=== PATIENT | female | born 1965 | race Caucasian/White ===

== ENCOUNTER 2022-05-03 00:16 | Emergency (ER) | payer OTHER, SELFPAY ==
--- NOTE | ~2022-05-03 | XR_ITS ---
EXAMINATION: XR CHEST CLINICAL INFORMATION: Cough COMPARISON: None TECHNIQUE: 2 views of the chest were obtained. FINDINGS: Lungs are well-inflated and clear. Trachea is midline in position. No interstitial infiltrate, consolidation or mass. No pleural effusion or pneumothorax. Cardiac silhouette and pulmonary vessels are normal in size. The mediastinum and korin have normal contour. The visualized bones and upper abdomen are unremarkable. XR/XR chest 2V IMPRESSION: No radiographic evidence of pneumonia. No acute cardiopulmonary abnormality.
[2022-05-03 00:39] VITALS: BP 108/68; PULSE 115; RESP 18; TEMP 38.2; O2SAT 94; BMI 32.1
[2022-05-03 05:52] VITALS: BP 109/55; PULSE 93; RESP 18; TEMP 36.9; O2SAT 97
--- NOTE | 2022-05-03 06:50 | ED.GENADULT ---
HPI - General Adult General Chief complaint: Upper Respiratory Symptoms Stated complaint: flu like symptons Time Seen by Provider: 05/03/22 06:45 Source: patient Mode of arrival: ambulatory Limitations: no limitations History of Present Illness HPI narrative: This is a very pleasant 56 years old female presented to the emergency department complaining of cough, chills, fever. 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 She has history of asthma but otherwise no other medical problems she has no smoker Onset (ago): hour(s) (6) Radiation: non-radiation Severity: mild Pain Consistency: constant Relieving factors: none Exacerbating factors: none Associated symptoms: denies other symptoms Related Data Allergies Allergy/AdvReac Type Severity Reaction Status Date / Time No Known Allergies Allergy Unverified 06/27/20 17:22 [No Known Allergies*] Review of Systems Review of Systems: Yes all other systems are reviewed and are negative Constitutional: Constitutional: Reports as per HPI Cardiovascular: Cardiovascular: Denies chest pain and Denies dyspnea Respiratory: Respiratory: Denies dyspnea Gastrointestinal: Gastrointestinal: Denies abdominal pain [facility] Past Medical History [facility] Narrative: Asthma Social History Social History Patient Tobacco Use Status: Never used Tobacco Use of substances other than those prescribed or required for medical reasons: No Advance Directives: No Physical Exam ED Vital Signs: Vital Signs - 24 hr 05/03/22 00:39 05/03/22 05:52 05/03/22 08:08 Temperature 100.7 F H 98.5 F 98.8 F Pulse Rate 115 H 93 97 Respiratory Rate 18 18 18 Blood Pressure 108/68 109/55 L 109/57 L Pulse Oximetry 94 97 95 Oxygen Delivery Method Room Air Room Air Room Air BMI result Body Mass Index 32.1 Const Other: She looks well she is not toxic-appearing General: cooperative, comfortable, no acute distress, well developed, alert, awake and Physically active Nutritional Appearance: average body habitus and well nourished Limitations: no limitations HENMT Head: Yes normal to inspection Face and sinus: Yes normal facial exam Mouth: Normal oral and palatal mucosa present Throat: Yes posterior oropharynx normal Neck Neck: Yes normal visual inspection and Yes full ROM Chest Chest palpation & inspection: normal inspection of the chest Resp Effort & Inspection: normal respiratory effort Auscultation: clear to auscultation bilaterally Cardio Jugular venous distension: no JVD Rate: regular rate Rhythm: regular rhythm GI Inspection: Yes normal to inspection Palpation (GI): Soft to palpation, not firm and nontender Skin General skin exam: no rashes or lesions noted and elasticity normal Medical Decision Making Lab Data Labs: Lab Results 05/03/22 Range/Units 06:52 COVID-19 (GERMAN) Positive A (Negative) COVID-19 Clin Com See Note Imaging Data Chest x-ray: Radiologist's impression: Cough COMPARISON: None TECHNIQUE: 2 views of the chest were obtained. FINDINGS: Lungs are well-inflated and clear. Trachea is midline in position. No interstitial infiltrate, consolidation or mass. No pleural effusion or pneumothorax.? Cardiac silhouette and pulmonary vessels are normal in size. The mediastinum and korin have normal contour. The visualized bones and upper abdomen are unremarkable. XR/XR chest 2V IMPRESSION: No radiographic evidence of pneumonia. No acute cardiopulmonary abnormality. ? ? Dictated By: Romain Hua MD Signed By: <Electronically signed by Romain Hua MD in OV> 05/03/22 0744 Discharge Plan Discharge Clinical Impression: COVID-19 Patient Disposition: Home, Self-Care Instructions: COVID-19 (Coronavirus Disease 2019) (ED) Additional Instructions: Follow-up with your primary care physician in the take ibuprofen 800 mg every 8 hours as needed return if you worse Referrals: Physician,Unknown J [Primary Care Provider] -
[2022-05-03 07:20] LABS: COVID-19 Test Positive (Negative)
[2022-05-03] MEDS: Ibuprofen 800 MG TABLET PO (08:04)
[2022-05-03 08:08] VITALS: BP 109/57; PULSE 97; RESP 18; TEMP 37.1; O2SAT 95
[2022-05-03 08:14] VITALS: BP 95/47; PULSE 74; RESP 16; O2SAT 98
== END 2022-05-03 08:17 | disposition home or self-care (01) ==
PROVIDERS: Emergency Provider Emergency Medicine
DX: U07.1 COVID-19 (principal); R05.9 Cough, unspecified; R50.9 Fever, unspecified
CPT/HCPCS: 71046; 87635; 99284